=== PATIENT | female | born 1975 | race Hispanic/Latino ===

== ENCOUNTER 2017-04-08 08:41 | Observation (INO) | payer MEDICAID ==
[2017-04-08 08:56] VITALS: BMI 39.4
--- NOTE | 2017-04-08 09:10 | ED PDOC ---
Arrival/HPI - General Chief Complaint: Cough, Cold, Congestion Time Seen by Provider: 04/08/17 09:03 Historian: Patient - History of Present Illness Narrative History of Present Illness (Text): 04/08/17 09:03 41 y/o female, pmh including asthma, penicillin allergy, c/o sorethroat/ coughing and chest congestion. Pt. stated that she has coughing on and off since 09/2016 which has been follow up with the pmd Dr. Negron but stop seeing him due to the insurance problem. Pt. started to have throat pain and chest congestion about 3 days ago, no night sweat or hemoptysis, no recent traveling for the past 6 weeks, no chest pain or shortness of breath, no palpitation, no other medical or psychological complaints. Past Medical History - Provider Review Nursing Documentation Reviewed: Yes - Past History Past History: No Previous - Musculoskeletal/Rheumatological Hx Falls: No - Psychiatric Hx Depression: No Hx Emotional Abuse: No Hx Physical Abuse: No Hx Substance Use: No - Past Surgical History Past Surgical History: No Previous - Anesthesia Hx Anesthesia: No - Suicidal Assessment Feels Threatened In Home Enviroment: No Family/Social History - Physician Review Nursing Documentation Reviewed: Yes Family/Social History: Unknown Family HX Smoking Status: Never Smoked Hx Alcohol Use: No (SOCIALLY) Hx Substance Use: No Allergies/Home Meds Allergies/Adverse Reactions: Allergies Penicillins Allergy (Verified 04/08/17 08:56) ANAPHYLAXIS Review of Systems - Review of Systems Constitutional: absent: Fatigue, Fevers Eyes: absent: Vision Changes ENT: Sore Throat. absent: Hearing Changes Respiratory: Cough, Sputum. absent: SOB, Wheezing Cardiovascular: absent: Chest Pain Gastrointestinal: absent: Abdominal Pain, Diarrhea, Nausea, Vomiting Skin: absent: Rash, Pruritis, Skin Lesions Neurological: absent: Headache, Dizziness Physical Exam Vital Signs Reviewed: Yes Vital Signs Temp Pulse Resp BP Pulse Ox 04/08/17 13:09 98.7 F 97 H 19 128/72 98 04/08/17 12:18 98 F 98 H 20 99 04/08/17 11:31 98.5 F 101 H 20 120/98 H 97 04/08/17 10:54 104 H 16 136/95 H 100 04/08/17 09:00 98.7 F 112 H 16 113/59 L 100 04/08/17 08:57 99.2 F 107 H 16 166/96 H 97 Temperature: Afebrile Blood Pressure: Hypertensive Pulse: Tachycardic Respiratory Rate: Normal Appearance: Positive for: Well-Appearing, Non-Toxic, Comfortable Pain Distress: Mild Mental Status: Positive for: Alert and Oriented X 3 - Systems Exam Head: Present: Atraumatic, Normocephalic Pupils: Present: PERRL Extroacular Muscles: Present: EOMI Conjunctiva: Present: Normal Ears: Present: NORMAL TM, Normal Canal. No: Erythema Mouth: Present: Moist Mucous Membranes Pharnyx: No: ERYTHEMA, EXUDATE, TONSILS ENLARGED, Uvular Deviation, Muffled/ Hoarse Voice, Strider, Soft Palate/Uvular Edema Neck: Present: Normal Range of Motion Respiratory/Chest: Present: Clear to Auscultation, Good Air Exchange, Decreased Breath Sounds (generalized bilaterally), Rhonchi (+generalized rhonchi). No: Respiratory Distress, Accessory Muscle Use, Wheezes, Rales, Retracting, Tachypneic, Tender to Palpation Cardiovascular: Present: Regular Rate and Rhythm, Normal S1, S2, Other (no pedal edema). No: Murmurs Abdomen: Present: Normal Bowel Sounds. No: Tenderness, Distention, Peritoneal Signs, Rebound, Guarding Back: Present: Normal Inspection Upper Extremity: Present: Normal Inspection. No: Cyanosis, Edema Lower Extremity: Present: Normal Inspection. No: Edema Neurological: Present: GCS=15, Speech Normal, Motor Func Grossly Intact, Gait Normal, Memory Normal Skin: Present: Warm, Dry, Normal Color. No: Rashes Psychiatric: Present: Alert, Oriented x 3, Normal Insight, Normal Concentration Medical Decision Making ED Course and Treatment: 04/08/17 09:34 -labs -duoneb -chest xray -IVF/duonebx2/prednisone 60mg po -observe and reassess - Lab Interpretations Lab Results: 04/08/17 09:50 Lab Results 04/08/17 10:32: D-Dimer, Quantitative 0.21 04/08/17 09:50: WBC 13.6 H, RBC 4.80, Hgb 12.5, Hct 37.6, MCV 78.3 L, MCH 26.0, MCHC 33.2, RDW 13.6, Plt Count 327, MPV 10.1, Gran % 73.8 H, Lymph % (Auto) 17.8 L, [place] % (Auto) 6.1 H, Eos % (Auto) 1.9, Baso % (Auto) 0.4, Gran # 10.00 H , Lymph # 2.4, [place] # 0.8 H, Eos # 0.3, Baso # 0.05 I have reviewed the lab results: Yes Interpretation: Abnormal lab values (wbc 13.6) - RAD Interpretation Radiology Orders: 04/08/17 09:10 CHEST PORTABLE [RAD] Stat no active disease 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 - Medication Orders Current Medication Orders: Ceftriaxone Sodium (Rocephin 1 Gram Ivpb) 1 gm in 100 mls @ 200 mls/hr IVPB STAT STA PRN Reason: Protocol Stop: 04/08/17 13:33 Last Admin: 04/08/17 13:16 Dose: 200 mls/hr Discontinued Medications Albuterol/Ipratropium (Duoneb 3 Mg/0.5 Mg (3 Ml) Ud) 3 ml IH STAT STA Stop: 04/08/17 09:38 Last Admin: 04/08/17 10:08 Dose: 3 ml Albuterol/Ipratropium (Duoneb 3 Mg/0.5 Mg (3 Ml) Ud) 3 ml IH STAT STA Stop: 04/08/17 09:39 Last Admin: 04/08/17 09:59 Dose: 3 ml Sodium Chloride (Sodium Chloride 0.9%) 1,000 mls @ 999 mls/hr IV .Q1H1M STA Stop: 04/08/17 10:37 Last Admin: 04/08/17 10:00 Dose: 999 mls/hr Prednisone (Prednisone Tab) 60 mg PO STAT ONE Stop: 04/08/17 09:39 Last Admin: 04/08/17 09:58 Dose: 60 mg ED OBSERVATION Date of observation admission: 04/08/17 Time of observation admission: 11:20 - Observation admission statement Patient is being placed in observation because:: bronchitis/decrease aeration - Goals of Observation Goals of observation are:: observe until chest is clear - Progress Note Progress Note: 04/08/17 11:30 -pt. is receiving IVF and 2 doses of duoneb. -Pending CMP 04/08/17 12:31 -chest xray show no active disease -Labs are non-significant except wbc 13.6 but afebrile -CMP show no acute findings. -D-dimer within normal limit. -IV rocephin 1gm ordered (pt. has no anapylatic reaction to the penicillin). 04/08/17 13:05 -Pt. is vitally stable -Bilateral lung is clear to auscultate with no wheezing/crackles/retractions, stable to be discharged home. -Discharge home with zithromax, promethazine dm, albuterol MDI, prednisone, claritin d24 , stay hydrated, follow up with your own pmd within 2 days, return to the ER for any new or worsening signs or symptoms. Disposition/Present on Arrival - Present on Arrival Any Indicators Present on Arrival: No History of DVT/PE: No History of Uncontrolled Diabetes: No Urinary Catheter: No History of Decub. Ulcer: No History Surgical Site Infection Following: None - Disposition Have Diagnosis and Disposition been Completed?: Yes Diagnosis: Bronchitis Disposition: HOME/ ROUTINE Disposition Time: 13:27 Patient Problems: Current Active Problems Problem Status Onset Bronchitis Acute Condition: IMPROVED
[2017-04-08] MEDS ORDERED: Albuterol-Ipratrop 3 mg / 0.5 (3 ml) UD IH STA ×2 (09:37→09:38)
[2017-04-08] MEDS ORDERED: Sodium Chloride 0.9% 1,000 ML IV STA (09:37)
[2017-04-08 09:58] LABS: ADD MANUAL DIFF? NO
[2017-04-08 10:04] LABS: BASO # 0.05 K/mm3 (0.0-2.0); BASO % 0.4 % (0.0-3.0); EOS # 0.3 (0.0-0.7); EOS % 1.9 % (1.5-5.0); GRAN % 73.8 % (50.0-68.0); HEMATOCRIT 37.6 % (36.0-48.0); LYMPH # 2.4 (1.2-3.4); LYMPH % 17.8 % (22.0-35.0); MEAN CELL VOLUME 78.3 fL (80.0-105.0); MEAN CORPUSCULAR HGB CONC 33.2 g/dl (31.0-37.0); MEAN PLATELET VOLUME 10.1 fl (7.0-11.0); MONO # 0.8 (0.1-0.6); MONO % 6.1 % (1.0-6.0); PLATELET COUNT 327 10^3/uL (120.0-450.0); RED CELL DISTRIBUTION WIDTH 13.6 % (11.5-14.5); WHITE BLOOD COUNT 13.6 10^3/ul (4.5-11.0)
--- NOTE | 2017-04-08 11:41 | RAD ---
HISTORY: cough COMPARISON: No prior. FINDINGS: LUNGS: No active pulmonary disease. PLEURA: No significant pleural effusion identified, no pneumothorax apparent. CARDIOVASCULAR: Normal. OSSEOUS STRUCTURES: No significant abnormalities. VISUALIZED UPPER ABDOMEN: Normal. OTHER FINDINGS: None. IMPRESSION: No active disease.
[2017-04-08 12:53] LABS: ALKALINE PHOSPHATASE 103 U/L (38-133); ALT/SGPT 31 U/L (7-56); AST/SGOT 26 U/L (15-39); BILIRUBIN,TOTAL 0.8 mg/dL (0.2-1.3); BLOOD UREA NITROGEN 7 mg/dL (7-21); CALCIUM 8.9 mg/dL (8.4-10.5); CARBON DIOXIDE 25 mmol/L (21-33); CHLORIDE 103 mmol/L (98-107); GFR AFRICAN-AMERICAN > 60; GLUCOSE,RANDOM 135 mg/dL (70-110); POTASSIUM 3.6 mmol/L (3.6-5.0); SODIUM 139 mmol/L (132-148); TOTAL PROTEIN 8.1 g/dL (5.8-8.3)
[2017-04-08] MEDS ORDERED: cefTRIAXone 1 gm 1 GM/100 ML BAG IVPB STA (13:04)
[2017-04-08 13:39] VITALS: PULSE 99; RESP 20
[2017-04-08 13:52] VITALS: BP 124/63; TEMP 98; O2SAT 98
== END 2017-04-08 13:53 | disposition home or self-care (01) ==
LOC: ED 08:41 → EROBSV 12:13
PROVIDERS: ADMIT Emergency Medicine; ATTEND Emergency Medicine
DX: J40 Bronchitis, not specified as acute or chronic (principal)
CPT/HCPCS: 71010; 80053; 85025; 85378; 96361; 96365; 99285; G0378; J0696; J7040

== ENCOUNTER 2017-11-20 12:41 | Emergency (ER) | payer MEDICAID ==
[2017-11-20 12:42] VITALS: BMI 39.4
--- NOTE | 2017-11-20 13:33 | ED PDOC ---
Arrival/HPI - General Historian: Patient - History of Present Illness Time/Duration: Other (2 days) Symptom Course: Unchanged Context: Home <Jimena Richard - Last Filed: 11/20/17 18:29> <Raeann Brock - Last Filed: 11/20/17 22:15> - General Chief Complaint: ENT Problem Time Seen by Provider: 11/20/17 13:31 - History of Present Illness Narrative History of Present Illness (Text): 11/20/17 13:33 A 42 year old female presents to the emergency department complaining of flu like symptoms for 2 days. Patient reports sore throat, dry cough, nasal congestion and mild headache. Patient denies any fever, chills, nausea, vomiting , abdominal pain, chest pain, shortness of breath or any other complaints. Patient reports she did not receive the flu shot. (Jimena Richard) Past Medical History - Provider Review Nursing Documentation Reviewed: Yes - Past History Past History: No Previous - Infectious Disease Hx of Infectious Diseases: None - Reproductive Menopause: No - Musculoskeletal/Rheumatological Hx Falls: No - Psychiatric Hx Depression: No Hx Physical Abuse: No Hx Substance Use: No - Past Surgical History Past Surgical History: No Previous - Anesthesia Hx Anesthesia: No - Suicidal Assessment Feels Threatened In Home Enviroment: No <Jimena Richard - Last Filed: 11/20/17 18:29> Family/Social History - Physician Review Nursing Documentation Reviewed: Yes Family/Social History: No Known Family HX Smoking Status: Never Smoked Hx Alcohol Use: No (SOCIALLY) Hx Substance Use: No <Jimena Richard - Last Filed: 11/20/17 18:29> Allergies/Home Meds <Jimena Richard - Last Filed: 11/20/17 18:29> <Raeann Brock - Last Filed: 11/20/17 22:15> Allergies/Adverse Reactions: Allergies Penicillins Allergy (Verified 11/20/17 13:15) ANAPHYLAXIS Review of Systems - Physician Review All systems were reviewed & negative as marked: Yes - Review of Systems Constitutional: absent: Fevers, Night Sweats ENT: Sore Throat, Sinus Congestion Respiratory: Cough. absent: SOB, Sputum Cardiovascular: absent: Chest Pain Gastrointestinal: absent: Abdominal Pain, Nausea, Vomiting Neurological: Headache <Jimena Richard - Last Filed: 11/20/17 18:29> Physical Exam Vital Signs Reviewed: Yes Temperature: Afebrile Blood Pressure: Normal Pulse: Regular Respiratory Rate: Normal Appearance: Positive for: Well-Appearing, Non-Toxic, Comfortable Pain Distress: None Mental Status: Positive for: Alert and Oriented X 3 - Systems Exam Head: Present: Atraumatic, Normocephalic Pupils: Present: PERRL Extroacular Muscles: Present: EOMI Conjunctiva: Present: Normal Ears: Present: Normal, NORMAL TM, Normal Canal. No: Erythema, TM Bulging, Fluid , TM Perf Mouth: Present: Moist Mucous Membranes Pharnyx: Present: Normal. No: ERYTHEMA, EXUDATE, TONSILS ENLARGED Nose (Internal): Present: Other (Nasal congestion) Neck: Present: Normal Range of Motion, Trachea Midline. No: Meningeal Signs Respiratory/Chest: Present: Clear to Auscultation, Good Air Exchange. No: Respiratory Distress, Accessory Muscle Use Cardiovascular: Present: Regular Rate and Rhythm, Normal S1, S2. No: Murmurs Abdomen: No: Tenderness, Distention Neurological: Present: GCS=15, Speech Normal Skin: Present: Warm, Dry, Normal Color. No: Rashes Lymphatic: No: Cervical Adenopathy Psychiatric: Present: Alert, Oriented x 3 <Jimena Richard - Last Filed: 11/20/17 18:29> Vital Signs Temp Pulse Resp BP Pulse Ox 11/20/17 15:44 17 98 11/20/17 15:29 98.5 F 79 18 101/59 L 99 11/20/17 13:11 98.7 F 77 16 125/75 99 Medical Decision Making <Jimena Richard - Last Filed: 11/20/17 18:29> <Raeann Brock - Last Filed: 11/20/17 22:15> ED Course and Treatment: 11/20/17 13:33 Impression: A 42 year old female with sore throat, dry cough, nasal congestion and mild headache Plan: -- Chest xray; non infiltrate as read by the radiologist. -- Influenza A B stat; negative -- Reassess and disposition Progress Notes: 11/20/17 15:32 Patient is nontoxic well-appearing in no distress. Vital signs are stable. Motrin Zithromax I advised follow up with primary care physician within the next 2 days. I advised increase fluids and return if symptoms worsen persist or if new symptoms develop. Patient verbalizes understanding of discharge instructions and need for immediate followup. all aspects of this case were discussed the attending of record. IMPRESSION; cough Motrin one tablet every 6 hours as needed for pain Zithromax one tablet once daily x4 days FLonase; 2 sprays each nostril once daily. Increase fluids Followup with primary care physician the next 2 days Return if symptoms worsen persist or if new symptoms develop (Jimena Richard) - Lab Interpretations Lab Results: Lab Results 11/20/17 13:30: Influenza Typ A,B (EIA) Negative for flu a/b - RAD Interpretation Radiology Orders: 11/20/17 13:31 CHEST TWO VIEWS (PA/LAT) [RAD] Stat - Medication Orders Current Medication Orders: Discontinued Medications Azithromycin (Zithromax) 500 mg PO STAT STA PRN Reason: Protocol Stop: 11/20/17 15:30 Last Admin: 11/20/17 15:43 Dose: 500 mg Ibuprofen (Motrin Tab) 600 mg PO STAT STA Stop: 11/20/17 15:30 Last Admin: 11/20/17 15:43 Dose: 600 mg MAR Pain/Vitals Document 11/20/17 15:43 [email or web address] (Rec: 11/20/17 15:43 [email or web address] [facility] [place], [place]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 No Sleep Is patient sleeping during reassessment? 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 <Raeann Brock - Last Filed: 11/20/17 22:15> - Scribe Statement Rosemary Reyes Provider Scribe Attestation: All medical record entries made by the Scribe were at my direction and personally dictated by me. I have reviewed the chart and agree that the record accurately reflects my personal performance of the history, physical exam, medical decision making, and the department course for this patient. I have also personally directed, reviewed, and agree with the discharge instructions and disposition. (Jimena Richard) Disposition/Present on Arrival - Present on Arrival Any Indicators Present on Arrival: No History of DVT/PE: No History of Uncontrolled Diabetes: No Urinary Catheter: No History of Decub. Ulcer: No History Surgical Site Infection Following: None - Disposition Have Diagnosis and Disposition been Completed?: Yes Disposition Time: 15:33 Patient Plan: Discharge <Jimena Richard - Last Filed: 11/20/17 18:29> <VinodRaeann lynch - Last Filed: 11/20/17 22:15> - Disposition Diagnosis: Cough Disposition: HOME/ ROUTINE Condition: GOOD Discharge Instructions (ExitCare): Acute Cough (ED) Additional Instructions: Motrin one tablet every 6 hours as needed for pain Zithromax one tablet once daily x4 days FLonase; 2 sprays each nostril once daily. Increase fluids Followup with primary care physician the next 2 days Return if symptoms worsen persist or if new symptoms develop Prescriptions: Azithromycin [Zithromax] 250 mg PO DAILY #4 tab Fluticasone Nasal [Flonase] 2 spr NS DAILY #1 spr Ibuprofen [Motrin] 600 mg PO Q6H PRN #20 tab PRN Reason: pain/fever reduction Referrals: Floyd Blanco MD [Primary Care Provider] - Follow up with primary [facility] at [facility] [place] [place] [Outside] - Follow up with primary Ellis Wood MD [Staff Provider] - Follow up with primary Forms: [employer] (T[place]isian), WORK NOTE
--- NOTE | 2017-11-20 15:28 | RAD ---
HISTORY: cough/fever COMPARISON: 04/08/2017 TECHNIQUE: Chest PA and lateral FINDINGS: LUNGS: No active pulmonary disease. PLEURA: No significant pleural effusion identified. No pneumothorax apparent. CARDIOVASCULAR: Normal. OSSEOUS STRUCTURES: No significant abnormalities. VISUALIZED UPPER ABDOMEN: Normal. OTHER FINDINGS: None. IMPRESSION: No active disease.
[2017-11-20 15:30] VITALS: BP 101/59; PULSE 79; TEMP 98.5
[2017-11-20 15:45] VITALS: RESP 17; O2SAT 98
== END 2017-11-20 15:45 | disposition home or self-care (01) ==
LOC: ED 12:41
DX: R05 Cough (principal)